=== PATIENT | female | born 1960 | race Caucasian/White ===

== ENCOUNTER 2021-03-03 17:59 | Emergency (ER) | payer MEDICAID ==
[~2021-03-03] VITALS: Ht 154.9 cm; Wt 93.0 kg
[2021-03-03] MEDS ORDERED: ACETAMINOPHEN 325MG TABLET PO ONE (19:45)
[2021-03-03 22:00] VITALS: BP 159/82
== END 2021-03-03 22:02 | disposition home or self-care (01) ==
LOC: ER 18:28
DX: M79.662 Pain in left lower leg (principal); I83.90 Asymptomatic varicose veins of unspecified lower extremity; I10 Essential (primary) hypertension
CPT/HCPCS: 73590; 93971; 99284